=== PATIENT | male | born 1970 | race Caucasian/White ===

== ENCOUNTER 2021-06-29 13:21 | Emergency (ER) | payer SELFPAY ==
[2021-06-29 14:09] VITALS: BP 122/77; PULSE 81
--- NOTE | 2021-06-29 17:07 | CR ---
Chest: Portable view of the chest was obtained. Comparison: No prior chest imaging is available. Heart size and mediastinum are within normal limits. Lungs are hyperinflated likely representing emphysematous change. No acute parenchymal change is seen. Very minimal atelectasis is seen within the left base. No acute osseous abnormality is appreciated. Impression: 1. Slight atelectasis within the left base. Emphysematous change is seen. 2. No acute parenchymal change is seen. Diagnostic code #2
--- NOTE | 2021-06-29 17:20 | EDM.PDOC ---
ED HPI GENERAL MEDICAL PROBLEM - General Chief Complaint: Respiratory Problem Stated Complaint: COVID + SOB COUGH Time Seen by Provider: 06/29/21 15:27 Source of Information: Reports: Patient, RN Notes Reviewed History Limitations: Reports: No Limitations - History of Present Illness INITIAL COMMENTS - FREE TEXT/NARRATIVE: Patient is a 51-year-old male presenting to the emergency department at the direction of the for reevaluation of Covid symptoms. Patient reports he has been ill with Covid for the last 14 days, however over the last 2 days has been feeling increasingly short of breath. Reports the duration of his illness he had generally mild symptoms, however has developed cough and significant dyspnea with exertion. Denies any chest pain. He has not received any form of treatment for his Covid illness thus far. Patient is a current [id number] smoker. States he recently cut back and currently only smokes half a pack a day. He denies any fever or chills at this time. He said no nausea vomiting or diarrhea. - Related Data Allergies Allergy/AdvReac Type Severity Reaction Status Date / Time No Known Allergies Allergy Verified 06/29/21 14:09 Home Meds: Home Meds Albuterol Sulfate [Proair Hfa] 8.5 gm IH Q4H PRN #1 hfa.aer.ad 06/29/21 [Rx] Azithromycin 250 mg PO ASDIRECTED 5 Days #6 tablet 06/29/21 [Rx] dexAMETHasone [Decadron] 6 mg PO DAILY 5 Days #5 tablet 06/29/21 [Rx] Past Medical History - Past Health History Medical/Surgical History: Denies Medical/Surgical History HEENT History: Reports: None Cardiovascular History: Reports: None Respiratory History: Reports: None Gastrointestinal History: Reports: None Genitourinary History: Reports: Renal Calculus Musculoskeletal History: Reports: None Neurological History: Reports: None Psychiatric History: Reports: None Endocrine/Metabolic History: Reports: None Insulin Pump Model and Lard Tub Washer: None Immunologic History: Reports: None Oncologic (Cancer) History: Reports: None Dermatologic History: Reports: None - Infectious Disease History Infectious Disease History: Reports: None - Past Surgical History Head Surgeries/Procedures: Reports: None Social & Family History - Family History Family Medical History: No Pertinent Family History - Tobacco Use Tobacco Use Status *Q: Current Every Day Tobacco User Years of Tobacco use: 34 Packs/Tins Daily: 0.5 Used Tobacco, but Quit: No - Caffeine Use Caffeine Use: Reports: Coffee - Recreational Drug Use Recreational Drug Use: No ED ROS GENERAL - Review of Systems Review Of Systems: See Below Constitutional: Reports: No Symptoms HEENT: Reports: No Symptoms Respiratory: Reports: Shortness of Breath, Cough, Sputum (Whitish). Denies: Pleuritic Chest Pain, Hemoptysis Cardiovascular: Reports: Dyspnea on Exertion Endocrine: Reports: No Symptoms GI/Abdominal: Reports: No Symptoms : Reports: No Symptoms Musculoskeletal: Reports: No Symptoms Skin: Reports: No Symptoms Neurological: Reports: No Symptoms Psychiatric: Reports: No Symptoms Hematologic/Lymphatic: Reports: No Symptoms Immunologic: Reports: No Symptoms ED EXAM, GENERAL - Physical Exam Exam: See Below Exam Limited By: No Limitations General Appearance: Alert, WD/WN, No Apparent Distress Respiratory/Chest: No Respiratory Distress, Lungs Clear, No Accessory Muscle Use, Chest Non-Tender, Decreased Breath Sounds Cardiovascular: Normal Peripheral Pulses, Regular Rate, Rhythm, No Edema, No Gallop, No JVD, No Murmur, No Rub Neurological: Alert, Oriented, CN II-XII Intact, Normal Cognition, Normal Gait, Normal Reflexes, No Motor/Sensory Deficits Psychiatric: Normal Affect, Normal Mood Skin Exam: Warm, Dry, Intact, Normal Color, No Rash Course - Vital Signs Last Recorded V/S: Last Vital Signs Temp 98.3 F 06/29/21 14:05 Pulse 81 06/29/21 14:05 Resp 20 06/29/21 14:05 BP 122/77 06/29/21 14:05 Pulse Ox 96 06/29/21 14:05 - Orders/Labs/Meds Labs: Laboratory Tests 06/29/21 06/29/21 06/29/21 Range/Units 15:56 15:56 15:56 WBC 5.47 (4.23-9.07) K/mm3 RBC 4.94 (4.63-6.08) M/mm3 Hgb 15.5 (13.7-17.5) gm/dl Hct 45.1 (40.1-51.0) % MCV 91.3 (79.0-92.2) fl MCH 31.4 (25.7-32.2) pg MCHC 34.4 (32.2-35.5) g/dl RDW Std Deviation 43.2 (35.1-43.9) fL Plt Count 194 (163-337) K/mm3 MPV 9.2 L (9.4-12.3) fl Neut % (Auto) 67.8 (34.0-67.9) % Lymph % (Auto) 21.2 L (21.8-53.1) % Taylor % (Auto) 9.9 (5.3-12.2) % Eos % (Auto) 0.7 L (0.8-7.0) Baso % (Auto) 0.2 (0.1-1.2) % Neut # (Auto) 3.71 (1.78-5.38) K/mm3 Lymph # (Auto) 1.16 L (1.32-3.57) K/mm3 Taylor # (Auto) 0.54 (0.30-0.82) K/mm3 Eos # (Auto) 0.04 (0.04-0.54) K/mm3 Baso # (Auto) 0.01 (0.01-0.08) K/mm3 D-Dimer, Quantitative 1.52 H (0.19-0.50) mg/L Sodium 143 (136-145) mEq/L Potassium 4.6 (3.5-5.1) mEq/L Chloride 108 H (98-107) mEq/L Carbon Dioxide 26 (21-32) mEq/L Anion Gap 13.6 (5-15) BUN 21 H (7-18) mg/dL Creatinine 1.0 (0.7-1.3) mg/dL Est Cr Clr Drug Dosing 101.61 mL/min Estimated GFR (MDRD) > 60 (>60) mL/min BUN/Creatinine Ratio 21.0 H (14-18) Glucose 94 (70-99) mg/dL Calcium 8.9 (8.5-10.1) mg/dL Total Bilirubin 0.9 (0.2-1.0) mg/dL AST 17 (15-37) U/L ALT 37 (16-63) U/L Alkaline Phosphatase 72 (46-116) U/L Troponin I < 0.017 (0.00-0.056) ng/mL C-Reactive Protein <0.2 (<1.0) mg/dL NT-Pro-B Natriuret Pep (0-125) pg/mL Total Protein 7.0 (6.4-8.2) g/dl Albumin 3.9 (3.4-5.0) g/dl Globulin 3.1 gm/dL Albumin/Globulin Ratio 1.3 (1-2) 06/29/21 Range/Units 15:56 WBC (4.23-9.07) K/mm3 RBC (4.63-6.08) M/mm3 Hgb (13.7-17.5) gm/dl Hct (40.1-51.0) % MCV (79.0-92.2) fl MCH (25.7-32.2) pg MCHC (32.2-35.5) g/dl RDW Std Deviation (35.1-43.9) fL Plt Count (163-337) K/mm3 MPV (9.4-12.3) fl Neut % (Auto) (34.0-67.9) % Lymph % (Auto) (21.8-53.1) % Taylor % (Auto) (5.3-12.2) % Eos % (Auto) (0.8-7.0) Baso % (Auto) (0.1-1.2) % Neut # (Auto) (1.78-5.38) K/mm3 Lymph # (Auto) (1.32-3.57) K/mm3 Taylor # (Auto) (0.30-0.82) K/mm3 Eos # (Auto) (0.04-0.54) K/mm3 Baso # (Auto) (0.01-0.08) K/mm3 D-Dimer, Quantitative (0.19-0.50) mg/L Sodium (136-145) mEq/L Potassium (3.5-5.1) mEq/L Chloride (98-107) mEq/L Carbon Dioxide (21-32) mEq/L Anion Gap (5-15) BUN (7-18) mg/dL Creatinine (0.7-1.3) mg/dL Est Cr Clr Drug Dosing mL/min Estimated GFR (MDRD) (>60) mL/min BUN/Creatinine Ratio (14-18) Glucose (70-99) mg/dL Calcium (8.5-10.1) mg/dL Total Bilirubin (0.2-1.0) mg/dL AST (15-37) U/L ALT (16-63) U/L Alkaline Phosphatase (46-116) U/L Troponin I (0.00-0.056) ng/mL C-Reactive Protein (<1.0) mg/dL NT-Pro-B Natriuret Pep 43 (0-125) pg/mL Total Protein (6.4-8.2) g/dl Albumin (3.4-5.0) g/dl Globulin gm/dL Albumin/Globulin Ratio (1-2) Meds: Medications Discontinued Medications Generic Name Dose Route Start Last Admin Trade Name Freq PRN Reason Stop Dose Admin Sodium Chloride 100 mls @ 60 mls/min 06/29/21 17:30 06/29/21 17:45 Normal Saline IV 06/29/21 20:00 60 mls/min ASDIRECTED KEDAR Administration Iopamidol 100 ml 06/29/21 17:21 06/29/21 17:45 Iopamidol 755 Mg/Ml 100 Ml Bottle IVPUSH 06/29/21 17:22 100 ml ONETIME ONE Administration Sodium Chloride 10 ml 06/29/21 17:21 06/29/21 17:45 Sodium Chloride 0.9% 10 Ml Sdv FLUSH 06/29/21 17:22 10 ml ONETIME ONE Administration - Re-Assessments/Exams Free Text/Narrative Re-Assessment/Exam: 06/29/21 19:27 CT angiogram of the chest impression as follows: 1. No pulmonary emboli. 2. Patchy left lower lobe per referral opacities. The finding is atypical for a "late Covid "CT finding and is concerning for acute/new infection. Patient will be started on dexamethasone. Given the findings of CT, I will cover for possible superimposed bacterial infection with azithromycin. I will also provide him with albuterol inhaler as I feel he may have some underlying COPD giving the emphysematous changes on his chest x-ray. Will be sent home with a pulse oximeter. Discussed return precautions. Discharge instructions as documented. Departure - Departure Time of Disposition: 19:34 Disposition: Home, Self-Care 01 Condition: Good Clinical Impression: COVID-19 - Discharge Information *PRESCRIPTION DRUG MONITORING PROGRAM REVIEWED*: No *COPY OF PRESCRIPTION DRUG MONITORING REPORT IN PATIENT MARQUIS: No Prescriptions: Azithromycin 250 mg PO ASDIRECTED 5 Days #6 tablet dexAMETHasone [Decadron] 6 mg PO DAILY 5 Days #5 tablet Albuterol Sulfate [Proair Hfa] 8.5 gm IH Q4H PRN #1 hfa.aer.ad PRN Reason: Shortness Of Breath Instructions: COVID-19 Referrals: PCP,None [Primary Care Provider] - Forms: ED Department Discharge Additional Instructions: Take the azithromycin, dexamethasone, and albuterol as prescribed. Check your oxygen nightly. If you are maintaining an oxygen saturation below 88% and it is not coming up or you develop any other new or worsening symptoms of concern, please return to the ER for reevaluation. Sepsis Event Note (ED) - Evaluation Sepsis Screening Result: No Definite Risk
[2021-06-29] MEDS ORDERED: Iopamidol 755 Mg/ML 100 ML Bottle IVPUSH ONE (17:21)
[2021-06-29] MEDS ORDERED: Sodium Chloride 0.9% 10 ML SDV FLUSH ONE (17:21)
[2021-06-29] MEDS ORDERED: Sodium Chloride 0.9% 100 ML IV SCH (17:30)
--- NOTE | 2021-06-30 06:37 | CT ---
CT chest Technique: Multiple axial sections through the chest were obtained. Intravenous contrast was utilized. Study was performed as a pulmonary angiogram protocol. Comparison: Prior chest x-ray performed earlier on the same day (3:31 PM). Findings: Pulmonary arteries show no filling defects. Nothing is appreciated to indicate pulmonary embolism. Thoracic aorta shows no aneurysm. Mediastinum shows no adenopathy. No axillary adenopathy is seen. No pericardial thickening is seen. Visualized portion of the upper abdominal structures show two calcifications within the left kidney compatible with nonobstructing calculi. Lung window settings were obtained which show parenchymal density within the left lung base. Lungs otherwise are clear. No pleural effusions are seen. Bone window settings were reviewed which show no acute osseous abnormality. Impression: 1. Density within the left lung base most likely representing an area of pneumonia. Please correlate with patient's symptoms. 2. Two nonobstructing calculi are seen within the visualized left kidney. 3. No findings of pulmonary embolism are seen. Diagnostic code #3 I agree with preliminary report from [facility], finalized on 06/29/21, 7:02 PM CDT, code 1
== END 2021-06-29 19:57 | disposition home or self-care (01) ==
LOC: JD.ED 13:21
DX: U07.1 COVID-19 (principal); Z72.0 Tobacco use
CPT/HCPCS: 36415; 71045; 71275; 80053; 83880; 84484; 85025; 85379; 86140; 99285; Q9967